=== PATIENT | female | born 1965 | race Caucasian/White ===

== ENCOUNTER 2018-03-09 11:21 | Emergency (ER) | payer OTHER ==
[~2018-03-09] VITALS: Ht 149.9 cm; Wt 83.9 kg
[~2018-03-09 11:21] MED LIST: CYCLOBENZAPRINE5 MG PO; FISH OIL 1,001000 M2 PO; FOLIC ACID 40400 MCG PO; NORCO 5-325 TA1 EACH PO; PROGESTERONE100 MG; SYNTHROID150 MCG PO
[2018-03-09 11:49] LABS: URINE BILIRUBIN NEGATIVE (Negative); URINE BLOOD 3+ (Negative); URINE CLARITY CLOUDY; URINE COLOR BROWN; URINE GLUCOSE-RANDOM* NEGATIVE (Negative); URINE KETONES TRACE (Negative); URINE LEUKOCYTES TRACE (Negative); URINE NITRITE POSITIVE (Negative); URINE PROTEIN (DIPSTICK) 2+ (Negative); URINE SPECIFIC GRAVITY 1.025 (1.005-1.035)
[2018-03-09 11:56] LABS: ABSOLUTE NEUTROPHILS 7.7 thou/uL (1.4-8.2); BASOPHILS 0.5 % (0.0-2.0); EOSINOPHILS 2.6 % (0.0-3.0); LYMPHOCYTES 15.3 % (24.0-44.0); MCH 28.6 pg (26.0-34.0); MCHC 33.4 g/dL (28.0-37.0); MCV 85.6 fL (80.0-100.0); MONOCYTES 5.8 % (1.0-8.0); PLATELET COUNT 291 thou/uL (150-400); POLYS 75.8 % (36.0-66.0); RBC 5.25 mil/uL (4.20-5.00); RDW 14.3 % (10.5-14.5); WBC 10.2 thou/uL (4.0-11.0)
[2018-03-09 12:05] LABS: CASTS None Seen /LPF (None Seen); CRYSTALS None Seen /LPF (None Seen); SQUAMOUS 0-3 Few /LPF (0-3); URINE RBC >20 Many /HPF (0-2)
[2018-03-09 12:06] LABS: BACTERIA 1-9 Few /HPF (None Seen); URINE WBC 0-5 Rare /HPF (0-5)
[2018-03-09 12:06] LABS: CALCIUM 9.2 mg/dL (8.5-10.1); CREATININE 0.7 mg/dL (0.6-1.0); POTASSIUM 3.7 mmol/L (3.5-5.1)
[2018-03-09] MEDS ORDERED: VITAMIN B COMP1 EACH PO (12:12)
[2018-03-09] MEDS ORDERED: SYNTHROID125 MC1 PO (12:12)
[2018-03-09] MEDS ORDERED: [UNRECOGNIZED DRUG - OTHER] PO (12:13)
[2018-03-09] MEDS ORDERED: KRILL PO (12:13)
[2018-03-09] MEDS ORDERED: VITAMIN D3400 UNIT (12:14)
[2018-03-09 13:13] VITALS: BP 138/75
[2018-03-09] MEDS ORDERED: FLOMAX0.4 MG PO (13:25)
[2018-03-09] MEDS ORDERED: NORCO 5-325 TA1 EACH PO (13:25)
[2018-03-09] MEDS ORDERED: KEFLEX500 M1 PO (13:26)
== END 2018-03-09 13:50 | disposition home or self-care (01) ==
LOC: ER 11:21
PROVIDERS: Emergency Medicine
DX: N23 Unspecified renal colic (principal); N39.0 Urinary tract infection, site not specified; Z88.1 Allergy status to other antibiotic agents; Z91.02 Food additives allergy status

== ENCOUNTER 2018-06-15 20:08 | Emergency (ER) | payer OTHER ==
[~2018-06-15] VITALS: Ht 149.9 cm; Wt 81.7 kg
[~2018-06-15 20:08] MED LIST changes: +FLOMAX0.4 MG PO; +KEFLEX500 M1 PO; +KRILL PO; +SYNTHROID125 MC1 PO; +VITAMIN B COMP1 EACH PO; +VITAMIN D3400 UNIT; +[UNRECOGNIZED DRUG - OTHER] PO
[2018-06-15 22:27] VITALS: BP 148/78
== END 2018-06-15 22:28 | disposition home or self-care (01) ==
LOC: ER 20:08
DX: S16.1XXA Strain of muscle, fascia and tendon at neck level, initial encounter (principal); S09.90XA Unspecified injury of head, initial encounter; Z87.442 Personal history of urinary calculi; Z88.1 Allergy status to other antibiotic agents; Z88.8 Allergy status to other drugs, medicaments and biological substances; Z91.018 Allergy to other foods; W18.30XA Fall on same level, unspecified, initial encounter; Y93.89 Activity, other specified; Y92.89 Other specified places as the place of occurrence of the external cause; Y99.8 Other external cause status